=== PATIENT | male | born 1970 | race Two or more races ===

== ENCOUNTER 2021-07-15 10:00 | Outpatient (CLI) | payer OTHER ==
[~2021-07-15 10:00] MED LIST: CEFADROXIL500 MG PO; HUMULIN N100 UNIT/2; LISINOPRIL10 MG; METFORMIN HCL1000 M1; MOTRIN800 MG PO
== END 2021-07-15 10:30 | disposition home or self-care (01) ==
LOC: PPH VACUNA 10:00
PROVIDERS: ATTEND Emergency Medicine Pediatric Emergency Medicine
DX: Z23 Encounter for immunization (principal)